=== PATIENT | female | born 1985 | race Caucasian/White ===

== ENCOUNTER 2021-06-05 18:38 | Emergency (ER) | payer BC ==
[~2021-06-05] VITALS: Ht 162.6 cm; Wt 70.5 kg
[2021-06-05 18:57] VITALS: TEMP 97.8
[2021-06-05 21:33] VITALS: BP 116/82; PULSE 85
== END 2021-06-05 21:33 | disposition home or self-care (01) ==
LOC: COL.ER 18:38
DX: S00.81XA Abrasion of other part of head, initial encounter (principal); W19.XXXA Unspecified fall, initial encounter; W22.8XXA Striking against or struck by other objects, initial encounter; Y93.02 Activity, running